=== PATIENT | female | born 1970 | race Asian ===

== ENCOUNTER → 2016-10-17 | Outpatient (CLI) | payer BC ==
[~2016-10-17] MED LIST: NO MEDICATIONS
--- NOTE | ~2016-10-17 | MY29 ---
[facility] A Service of [facility] RADIOLOGY TEXT RESULTS PATIENT: MAGALI SCHWARTZ LOCATION: [facility] : [birth year] UNIT #: [id number] AGE: [address]: VANESSA ZUNIGA SEX: F ORDER DR: [id number] [facility] [address] [place], [place] [address] [id number] O MR#: [id number] Acc #: [id number] NAME: MAGALI SCHWARTZ : 1970 SEX: F STUDY DATE/TIME: 10/17/2016 8:31 UNIT: [facility] ROOM: STUDY DESCRIPTION: MY HUMBERTO SCREENING W/ CAD BILAT Attending Physician: Vanessa Zuniga Referring Physician: Vanessa Zuniga Ordering Physician: Staff Doctor Not On Primary Care Physician: Vanessa Zuniga MEDICAL IMAGING REPORT This report is preliminary unless electronic signature is present EXAM Digital screening mammogram 10/17/2016 HISTORY 46-year-old woman. No risk elevation. Annual screen. COMPARISON 12/17/2006, 02/25/2010, 01/20/2014. FINDINGS Digital imaging of each breast was completed utilizing a two-view examination of each breast in craniocaudal and mediolateral-oblique projections. Review and interpretation of digital mammograms include a second review in conjunction with FDA-approved CAD device. There is a normal parenchymal presentation bilaterally consistent with the patient's age. There are no breast masses imaged and no parenchymal asymmetry is visualized. There are no suspicious microcalcifications and I see no focal architectural disturbance. IMPRESSION Negative screening digital mammogram. One-year followup recommended. Patients over the age of 40 are entered into a reminder system with target due date for the next mammogram. A result letter will also be sent to the patient. BIRADS: 1 Negative Dictated by... David Linares M.D. THIS IS AN ELECTRONICALLY VERIFIED REPORT [facility] A Service of [facility] RADIOLOGY TEXT RESULTS PATIENT: MAGALI SCHWARTZ LOCATION: [facility] : 68 UNIT #: [id number] AGE: [address]: VANESSA ZUNIGA SEX: F ORDER DR: David Linares M.D. at 10/17/2016 12:34 PM JOB/quita TD: 10/17/2016 12:05 JOB #: [id number] MEDICAL IMAGING REPORT Page 1 of 1 COPY
== END | disposition home or self-care (01) ==
LOC: CWCC 07:56
DX: Z12.31 Encounter for screening mammogram for malignant neoplasm of breast (principal)
CPT/HCPCS: G0202

== ENCOUNTER 2016-10-18 16:19 | Emergency (ER) | payer BC ==
[~2016-10-18] VITALS: Ht 149.9 cm; Wt 49.9 kg
--- NOTE | ~2016-10-18 | CT71 ---
[facility] A Service of [facility] RADIOLOGY TEXT RESULTS PATIENT: MAGALI SCHWARTZ LOCATION: [facility] : 68 UNIT #: [id number] AGE: [address]: Flaco Morris MD SEX: F ORDER DR: [id number] [facility] [address] [place], [place] [address] [id number] E MR#: [id number] Acc #: [id number] NAME: MAGALI SCHWARTZ : 1970 SEX: F STUDY DATE/TIME: 10/18/2016 19:11 UNIT: [facility] ROOM: STUDY DESCRIPTION: CT Head Wo Contrast Attending Physician: Flaco Morris M.D. Ordering Physician: Flaco Morris M.D. Primary Care Physician: Bety Zuniga MEDICAL IMAGING REPORT This report is preliminary unless electronic signature is present EXAM CT brain without contrast. HISTORY Dizzy today. Fell 1 week ago. Hit back of head. TECHNIQUE This CT exam was performed with one or more of the following radiation dose reduction techniques: Automatic exposure control, adjustment of mA and/or kV according to patient size, and iterative reconstruction. FINDINGS CT brain without contrast demonstrates no intracranial hemorrhage, mass or edema. No midline shift or ventricular dilatation or extraaxial fluid collection. Minimal calcification along the medial margin of the lentiform nuclei bilaterally, incidentally noted. No focal atrophy or extraaxial fluid collection. IMPRESSION Negative CT brain. Dictated by... Felix Humphries M.D. THIS IS AN ELECTRONICALLY VERIFIED REPORT Felix Humphries M.D. at 10/19/2016 10:09 PM DFJimmy/leda TD: 10/19/2016 18:18 JOB #: [id number] MEDICAL IMAGING REPORT Page 1 of 1 COPY
--- NOTE | ~2016-10-18 | EKG ---
PATIENT: MAGALI SCHWARTZ UNIT #: [id number] Ventricular Rate: 67 BPM Atrial Rate: 67 BPM P-R Interval: 132 ms QRS Duration: 76 ms Q-T Interval: 394 ms QTC Calculation(Bezet): 416 ms P [place]: 54 degrees Calculated R [place]: 32 degrees Calculated T [place]: -6 degrees Diagnosis Line: Sinus rhythm with Blocked Premature atrial Diagnosis Line: complexes Diagnosis Line: Otherwise normal ECG Diagnosis Line: No previous ECGs available Diagnosis Line: Confirmed by OLVIN VIDAL MD ([id number]) on 10/19/2016 Diagnosis Line: 3:07:48 PM INTERPRETING MD: MARCY LAWRENCE
[2016-10-18 17:08] LABS: BASOPHIL# 0.1 X10e3 (0-0.3); BASOPHIL% 0.8 % (0-2.5); EOSINOPHIL# 0.1 X10e3 (0-0.7); EOSINOPHIL% 1.8 % (0.0-7.0); HEMATOCRIT 39.4 % (35.0-45.0); HEMOGLOBIN 13.1 gm/dL (12.0-16.0); LYMPHOCYTE# 2.4 X10e3 (1.0-3.5); LYMPHOCYTE% 37.8 % (17.0-45.0); MEAN CELL VOLUME 92.8 FL (83-96); MEAN CORPUSCULAR HEMOGLOBIN 30.9 PG (28-34); MEAN CORPUSCULAR HGB CONC 33.3 g/dL (30-36); MEAN PLATELET VOLUME 9.1 FL (6.5-11.5); MONOCYTE# 0.3 X10e3 (0-1.0); MONOCYTE% 4.9 % (3.0-12.0); NEUTROPHIL# 3.5 X10e3 (1.5-7.1); NEUTROPHIL% 54.7 % (40-75); PLATELET COUNT 245 X10e3 (140-420); RED BLOOD COUNT 4.25 X10e (3.90-5.30); RED CELL DISTRIBUTION WIDTH 12.8 % (11.0-15.5); WHITE BLOOD COUNT 6.3 X10e3 (4.0-10.5)
[2016-10-18 17:12] LABS: DIFF IND NO
[2016-10-18 17:27] LABS: URINE SOURCE CLEAN CATCH
[2016-10-18 17:33] LABS: ALBUMIN SERUM 4.4 g/dL (3.5-5.0); BILIRUBIN, DIRECT 0.1 mg/dL (0.0-0.2); BILIRUBIN,INDIRECT 0.9 mg/dL (0.0-0.9); CREATININE SERUM 0.5 mg/dL (0.6-1.4); GLOM FILT RATE Estimated 115.3 mL/min (>60); POTASSIUM 3.8 mmol/L (3.5-5.1); PROTEIN TOTAL SERUM 7.6 g/dL (6.0-8.3)
[2016-10-18 17:38] LABS: URINE APPEARANCE CLOUDY; URINE BILIRUBIN NEG (NEG); URINE BLOOD NEG (NEG); URINE COLOR YELLOW; URINE GLUCOSE NEG (NEG); URINE KETONE NEG (NEG); URINE LEUKOCYTE ESTERASE 3+ (NEG); URINE NITRATE NEG (NEG); URINE PH 6.5 (5-8); URINE PROTEIN NEG (NEG); URINE SPECIFIC GRAVITY 1.009 (1.003-1.035); URINE UROBILINOGEN 0.2 MG/DL (NEG)
[2016-10-18 17:40] LABS: CULTURE INDICATED? YES; URINE BACTERIA AUWI 1+ (NEGATIVE); URINE SQUAMOUS EPITHELIAL CELL MOD /[HPF]; UWBCS1 AUWI 25-50 (0-5)
[2016-10-18 17:57] LABS: POC - CKMB <1.0 ng/mL (0.0-7.9); POC - TROPONIN <0.05 ng/mL (<=0.05)
== END 2016-10-18 20:45 | disposition home or self-care (01) ==
LOC: CED 16:19
PROVIDERS: Emergency Medicine
DX: S09.90XA Unspecified injury of head, initial encounter (principal); R42 Dizziness and giddiness; W19.XXXA Unspecified fall, initial encounter; Y92.9 Unspecified place or not applicable
CPT/HCPCS: 36415; 70450; 80048; 80076; 81003; 82553; 84484; 84703; 85025; 87086; 93005; 99284